=== PATIENT | male | born 1985 | race Caucasian/White ===

== ENCOUNTER 2021-08-29 12:51 | Emergency (ER) | payer BC, SELFPAY ==
[2021-08-29 13:03] VITALS: BP 135/88; PULSE 60; RESP 16; TEMP 36.3; O2SAT 99
--- NOTE | 2021-08-29 13:06 | ED.GENADULT ---
HPI - General Adult General Chief complaint: Skin/Abscess/Foreign Body Stated complaint: Right jaw pain Source: patient Mode of arrival: ambulatory Limitations: no limitations History of Present Illness HPI narrative: Patient presents for evaluation of painful, swollen, erythematous lesion to the right side of his neck. He states he has had a small pliable lesion in the area for many years. When he gets anxious, he manipulates the lesion. 1 week ago he was manipulating the lesion. The following day he woke up with increased swelling and redness in the affected area. Reports pain primarily when he touches that area. No descriptive quality nor numerical rating to the pain. No fever, chills, nausea, vomiting, drainage from the area. He is not diabetic. He does not smoke. No additional complaints or concerns. Related Data Allergies Allergy/AdvReac Type Severity Reaction Status Date / Time No Known Allergies Allergy Mild Verified 09/26/10 16:22 Review of Systems Review of Systems: CONSTITUTIONAL: Denies fever, chills, or sweats. EYES: Denies visual changes, redness, or discharge. ENT: Denies rhinorrhea, congestion, sore throat, or otalgia. CARDIOVASCULAR: Denies chest pain, palpitations, or edema. RESPIRATORY: Denies cough or dyspnea. GASTROINTESTINAL: Denies abdominal pain, nausea, vomiting, or diarrhea. GENITOURINARY: Denies dysuria or hematuria. SKIN: Reports painful, swollen, erythematous lesion to right side of the neck MUSCULOSKELETAL: Denies back pain, joint pain, or myalgia. NEUROLOGIC: Denies headache, numbness, dizziness, or weakness. PSYCHIATRIC: Denies anxiety or depression. [facility] Past Medical History Medical History HPV in male Surgical History Surgical History No pertinent past surgical history Family History Family History Mother No pertinent family history Social History Social History Alcohol use details: reports alcoholism Substance use: current Substance use type: marijuana Additional living arrangements comments: Lives with girlfriend Gender identity (if verbalized by the patient): Male Sexual Orientation (if Verbalized by the Patient): Straight or Heterosexual Spiritual care concerns: No Exam Narrative: GENERAL: Well-appearing, well-nourished, and in no acute distress. HEAD: Normocephalic, atraumatic. EYES: PERRLA and EOMI. ENT: Nares clear, no rhinorrhea or epistaxis. Mucous membranes moist. Oropharynx without tonsillar hypertrophy exudate or other lesions. Bilateral TMs pearly celaya nonbulging NECK: Supple. No adenopathy or masses. No carotid bruits or JVD CHEST: Clear to auscultation. No respiratory distress. No wheezes rales or rhonchi HEART: Regular rate and rhythm. No murmur heard. Normal peripheral pulses. ABDOMEN: Soft, nontender, nondistended, normal active bowel sounds. EXTREMITIES: Normal range of motion. No edema. SKIN:Approximately 2cm raised erythematous lesion to neck just inferior to mandibular angle. There is associated induration with small area of fluctuance. NEURO: No focal deficits. Alert and oriented x3. PSYCH: Normal mood and affect. Course Course Emergency Course: This is a 35-year-old male who presented with complaints of painful swollen lesion to the right side of the neck. Exam was consistent with abscess. Incision and drainage was performed and patient tolerated well. Wound culture obtained. Packing placed and advised on wound care. There may be an underlying cystic structure, however deeper incision was not made due to underlying vascular structures. He was advised he should follow up with general surgery to see if there is remaining cystic structure which would need to be removed. Pt should go to ER
== END 2021-08-29 13:50 | disposition home or self-care (01) ==
PROVIDERS: Emergency Provider Nurse Practitioner
DX: L02.11 Cutaneous abscess of neck (principal)
CPT/HCPCS: 10061; 87070; 87075; 87076; 87205; 99203; G0463